=== PATIENT | female | born 1950 | race Caucasian/White ===

== ENCOUNTER 2016-08-07 10:45 | Emergency (ER) | payer OTHER ==
[2016-08-07 11:01] VITALS: RESP 18; TEMP 97
[2016-08-07] MEDS ORDERED: NORMAL SALINE 10 ML SYRINGE FLUSH IVP PRN (11:06)
[2016-08-07] MEDS ORDERED: Sodium Chloride 0.9% 1,000 ML PRIMARY IV ONE (11:06)
--- NOTE | 2016-08-07 11:31 | PDOC ---
Abdomen/Flank HPI - General Chief Complaint: Genitourinary Complaint Stated Complaint: LEFT FLANK PAIN Date Seen by Provider: 08/07/16 Time Seen by Provider: 10:50 Source: POSITIVE: Patient, Spouse Exam Limitations: POSITIVE: No limitations Nurse's Notes Reviewed & Considered: Yes - History of Present Illness Initial Comments: The patient is a 65-year-old female who is evaluated in the emergency department with abdominal pain and left flank pain. She is in the process of moving her home from [place] to [place]. She has done a lot of packing and lifting over the past couple of weeks. Approximately a week ago she had developed some pain in her lower back and left flank region. She was seen in the emergency department somewhere in [place] about 5 days ago. She had x-rays of her lumbar spine that shows some degenerative changes. Her urinalysis at that time was apparently normal. She was given a prescription for 800 mg ibuprofen as well as Tylenol with codeine. She states that she has continued to have pain in her lower back and left flank area. In addition she has developed over the past several days some increased pain in her lower abdomen and this morning she has some pain across her right upper abdomen as well. She does have associated nausea however has not been having any vomiting. She did have 2 episodes of diarrhea this morning. She denies fevers or chills however she does report general malaise and is concerned that she might have some type of infection. She is diabetic and takes 1 tablet of Glucophage daily. Her blood sugar yesterday was 120 and today was 140. She has had previous cholecystectomy in 2006. She has also had a left dermoid cyst removed from her ovary previously. She has had 2 previous C-sections as well. Her past medical history is otherwise unremarkable. She denies any urinary symptoms currently. She does report diminished urination yesterday. She did eat an omelette this morning prior to her increased right upper quadrant abdominal pain and nausea. - Patient Home Medications Home Medications: Home Medications Acetaminophen with Codeine [Tylenol with Codeine #3 Tablet] 1 tab PO PRN PRN Pantoprazole Sodium [Protonix] 40 mg PO DAILY #20 tablet 08/07/16 metFORMIN Tab [Glucophage Tab] 1,000 mg PO BID 08/07/16 oxyCODONE/APAP 5/325 Tab [Percocet 5/325 Tab] 1 tab PO Q6H PRN #15 tab - Patient Allergies Allergies/Adverse Reactions: Allergies Allergy/AdvReac Type Severity Reaction Status Date / Time erythromycin base Allergy HIVES Verified 08/07/16 10:51 Sulfa (Sulfonamide Allergy HIVES Verified 08/07/16 10:51 Antibiotics) Past Medical History - heen HEENT History: Denies History Cardiovascular History: Denies History Respiratory History: Denies History Gastrointestinal History: Denies History Genitourinary History: Denies History Endocrine History: Type 2 Diabetes (oral) Musculoskeletal History: Denies History Neurological History: Denies History Blood Disorders: Denies History Psychiatric History: Denies History Female Reproductive History: Denies History Obstetrical History: Denies History Cancer History: Denies History In Past Year Been Physically Harmed or Verbally Threatened: No History of MDRO: No Tobacco Use: Never Smoker Alcohol Use: Rarely Substance Use Type: None Previous Surgical History: Yes Type / Date of Surgery: BLANE, X2, TUMOR REMOVED FROM OVARY Anesthesia Reactions: No Malignant Hyperthermia: No Family History of Malignant Hyperthermia: No Significant Family History: No pertinent family hx Past Medical History Reviewed: Reviewed - No Changes ROS - Limitations ROS Limitations: No Limitations Constitution: DENIES: Chills, Fever Cardiovascular: REPORTS: Denies Cardiac Symptoms. DENIES: Chest Pain, Heart Palpitations, Edema Respiratory: DENIES: Cough Non Productive, Cough Productive, Hurts To Breathe, Shortness Of Breath Neurological: REPORTS: Denies Neuro Symptoms Gastrointestinal: REPORTS: Abdominal Pain, Nausea, Diarrhea (2 today), Other ( Previous colonoscopy in 2006 and she was told at that time that she had a "pre- polyp", no mention of diverticular disease). DENIES: Vomitting, Black Stools, Bloody Stools, Constipation Musculoskeletal: REPORTS: Back Pain (Low back and left flank pain). DENIES: Calf Pain, Lower Extremity Swelling Genitourinary: DENIES: Dysuria, Hematuria, Difficulty Urinating Eyes: REPORTS: Denies Symptoms ENT: REPORTS: Denies Symptoms Skin: DENIES: Rash Abdominal/Flank Pain PE - General Appearance General Appearance: POSITIVE: Alert, Cooperative, No Acute Distress - HEENT HEENT: POSITIVE: Head Inspection Nml, Eyes Inspection Nml, Ears Inspection Nml, Nose Inspection Nml - Neck Neck: POSITIVE: Normal Inspection - Respiratory Respiratory: POSITIVE: No Respiratory Distress, Breath Sounds Normal - Cardiovascular Cardiovascular: POSITIVE: Regular Rate and Rhythm, Heart Sounds Normal Peripheral Pulses: Dorsalis-pedis (R): 2+, Dorsalis-pedis (L): 2+ - Abdomen Abdomen: Soft: (All Quadrants), Normal Bowel Sounds: (All Quadrants), No Guarding: (All Quadrants), No Rebound: (All Quadrants), No Distention: (All Quadrants) Additional Abdominal Details: She does have some mild tenderness in her lower abdomen as well as right upper and epigastric region, no guarding or rebound tenderness, no palpable mass, no obvious CVA tenderness - Back Back: NEGATIVE: CVA Tenderness (R), CVA Tenderness (L) - Skin Skin: POSITIVE: Intact, No Rash - Extremities Extremity: Normal ROM: (All Extremities), Normal Inspection: (All Extremities) - Neurological Neurological: POSITIVE: Other (No focal neurologic deficits) Abdomen Progress - Results Reviewed by me Xrays/CTs/US Reviewed by me: Yes Discussed with Radiologist: Yes Radiology Findings: CT scan of the abdomen and pelvis reveals inflammatory changes around the stomach and possibly around the pancreas per radiologist. The radiologist also describes a mildly enlarged right ureter and mildly enlarged renal pelvises bilaterally, no visible stone. Lab Results Reviewed: Yes Lab Results:: Laboratory Results 08/07/16 08/07/16 Range/Units 11:25 11:58 WBC 6.23 (4.8-10.8) 10^3/uL RBC 4.56 (4.20-5.40) 10^6/uL Hgb 13.1 (12.0-16.0) g/dL Hct 39.1 (37.0-47.0) % MCV 85.7 (81-99) FL MCH 28.7 (27-31) PG MCHC 33.5 (33-37) g/dL RDW Std Deviation 40.6 (39-50) fL RDW Coeff of [place] 13.1 (11.5-14.5) % Plt Count 237 (140-350) 10*3/uL MPV 8.9 (7.4-12.2) FL Immature Gran % (Auto) 0.2 (0-5) % Neut % (Auto) 57.0 (50-80) % Lymph % (Auto) 27.8 (10-50) % [place] % (Auto) 8.3 (5-15) % Eos % (Auto) 6.1 (0-8) % Baso % (Auto) 0.6 (0-1) % Immature Gran # (Auto) 0.01 10*3/UL Neut # (Auto) 3.55 10*3/UL Lymph # (Auto) 1.73 10*3/uL [place] # (Auto) 0.52 (0.3-0.8) 10*3/UL Eos # (Auto) 0.38 10*3/UL Baso # (Auto) 0.04 10*3/UL WBC Morphology Comment Normal morphology (NORM) Plt Morphology Comment Normal morphology (NORM) RBC Morph Comment Normal morphology (NORM) Sodium 141 (135-145) meq/L Potassium 4.0 (3.8-5.2) meq/L Chloride 105 (98-112) meq/L Carbon Dioxide 26 (23-33) meq/L Anion Gap 10 (5-20) BUN 19 (7-22) mg/dL Creatinine 0.7 (0.50-1.20) mg/dL Estimated GFR > 60 (>60 ml/min/1.73m(2)) BUN/Creatinine Ratio 27.14 H (6-20) Glucose 113 H (78-110) mg/dL Calculated Osmolality 294.0 H (267-292) mOsm/kg Calcium 9.2 (8.7-10.7) mg/dL Total Bilirubin 0.9 (0.3-1.2) mg/dL AST 30 (8-39) IU/L ALT 49 (9-52) IU/L Alkaline Phosphatase 82 (38-126) IU/L C-Reactive Protein 0.7 (0.0-0.9) mg/dL Total Protein 7.3 (6.1-8.0) g/dL Albumin 4.1 (3.5-4.8) g/dL Globulin 3.2 (2.50-4.10) g/dL Albumin/Globulin Ratio 1.20 L (1.3-2.0) mg/g Amylase 51 (30-110) U/L Lipase 99 (23-300) IU/L Ur Collection Type Clean catch urine Urine Color Yellow Urine Clarity Clear (CLEAR) Urine pH 7.0 (5.0-8.5) Ur Specific [place] 1.015 (1.005-1.030) Urine Protein Negative (NEG) mg/dl Urine Glucose (UA) Negative (NEG) mg/dL Urine Ketones Negative (NEG) Urine Occult Blood Negative (NEG) Urine Nitrate Negative (NEG) Urine Bilirubin Negative (NEG) Urine Urobilinogen 0.2 (0.2) EU/dL Ur Leukocyte Esterase Negative (NEG) Ur Culture Indicated? Culture not set - Patient's Progress MDM / ED Course: An IV was established and she did receive a 1 L bolus of normal saline. She was nauseated and was having a fair amount of pain on arrival. She states that she is reluctant to take any medications through the IV as she is very sensitive to medications and they generally make her sick. She was offered antibiotics as well as pain medications however she declined initially. Her lab work is all essentially unremarkable and her urinalysis is normal. CT scan of her abdomen and pelvis revealed inflammatory change around the stomach as well as possibly around the pancreas per radiologist. Her pancreas enzymes however completely normal and I think that the inflammation more likely represents gastritis and not pancreatitis. The radiologist also mentioned a slightly enlarged right ureter as well as enlarged renal pelvises bilaterally with no evidence of obvious kidney stone. This was thought to be possibly indicative of a recently passed stone. These findings were discussed with the patient. I think her primary issues gastritis. She was started on Protonix 40 mg daily and was given Percocet as needed for pain. She was instructed about the other findings on CT. She is advised return to the emergency room if she develops increased pain, fever, vomiting or dehydration, any worsening or change in symptoms. She is advised follow-up with her primary care provider on Monday when she reaches her home in [place]. - Consult Counseled: POSITIVE: Patient, Family, RE: Lab Results, RE: Radiology Results, RE : DX, RE: Need for F/U Patient Care Time - Estimated PCT Patient Care Time (In Minutes): 40 Vital Signs - VS Reviewed Vital Signs Reviewed: Yes Discharge Clinical Impression: Abdominal pain, Gastritis Discharge Disposition: Discharged to Home Condition: Fair Prescriptions / Orders: oxyCODONE/APAP 5/325 Tab [Percocet 5/325 Tab] 1 tab PO Q6H PRN #15 tab PRN Reason: Pain Pantoprazole Sodium [Protonix] 40 mg PO DAILY #20 tablet Patient Instructions Given at Discharge: Gastritis (ED), Acute Abdominal Pain ( ED) Additional Instructions: The CAT scan of your abdomen and pelvis does reveal inflammation around the lower part of your stomach and first part of small intestine. This is most consistent with gastritis or ulcer. The radiologist thought there might be some inflammation around the pancreas as well however your pancreas enzymes were normal and your blood work and I think this was more related to the gastritis. The only other finding on the CAT scan was some prominent ureter on the right side and renal pelvises. There was no evidence of infection in the urine or blood in the urine. The radiologist stated this could represent findings consistent with a recently passed kidney stone. There was no visible kidney stones on the CAT scan. Your blood work did not reveal any sign of infection or elevated liver enzymes or any other abnormalities. Recommend treatment of the gastritis with Protonix 40 mg daily for at least the next 2 weeks. Recommend avoiding aspirin or ibuprofen products, caffeine and alcohol. You have also been prescribed Percocet 5/325 which he can take one every 6 hours as needed for pain. I commend returning to the emergency room if increased pain, vomiting or dehydration, fever, any worsening or change in symptoms. Keep your follow-up appointment with your primary care provider in [place] on Monday. Follow Up With: NONE,NONE [Primary Care Provider] -
[2016-08-07 11:39] LABS: BASOPHILS # (AUTO) 0.04 10*3/UL; BASOPHILS % (AUTO) 0.6 % (0-1); EOSINOPHILS # (AUTO) 0.38 10*3/UL; EOSINOPHILS % (AUTO) 6.1 % (0-8); HEMATOCRIT 39.1 % (37.0-47.0); HEMOGLOBIN 13.1 g/dL (12.0-16.0); LYMPHOCYTES # (AUTO) 1.73 10*3/uL; MEAN CORPUSCULAR HEMOGLOBIN 28.7 PG (27-31); MEAN CORPUSCULAR HGB CONC 33.5 g/dL (33-37); MEAN CORPUSCULAR VOLUME 85.7 FL (81-99); MEAN PLATELET VOLUME 8.9 FL (7.4-12.2); MONOCYTES # (AUTO) 0.52 10*3/UL (0.3-0.8); MONOCYTES % (AUTO) 8.3 % (5-15); NEUTROPHILS # (AUTO) 3.55 10*3/UL; RED BLOOD COUNT 4.56 10^6/uL (4.20-5.40)
[2016-08-07 11:40] LABS: PLATELET MORPHOLOGY COMMENT NORMAL MORPHOLOGY (NORM); RBC MORPHOLOGY COMMENT NORMAL MORPHOLOGY (NORM); WBC MORPHOLOGY COMMENT NORMAL MORPHOLOGY (NORM)
[2016-08-07 11:50] LABS: BLOOD UREA NITROGEN 19 mg/dL (7-22); BUN/CREATININE RATIO 27.14 (6-20); C-REACTIVE PROTEIN 0.7 mg/dL (0.0-0.9); CALCIUM 9.2 mg/dL (8.7-10.7); EST GLOMERULAR FILTRATION > 60 (>60 ml/min/1.73m(2)); LIPASE 99 IU/L (23-300); SERUM ALBUMIN 4.1 g/dL (3.5-4.8)
[2016-08-07 12:08] LABS: BILIRUBIN,URINE NEGATIVE (NEG); COLOR,URINE YELLOW; GLUCOSE, URINE (UA) NEGATIVE (NEG); NITRATE,URINE NEGATIVE (NEG); OCCULT BLOOD,URINE NEGATIVE (NEG); PROTEIN,URINE NEGATIVE (NEG); UROBILINOGEN,URINE 0.2 EU/dL (0.2)
[2016-08-07 12:09] LABS: CLARITY,URINE CLEAR (CLEAR)
[2016-08-07 12:10] LABS: URINE SAMPLE TYPE CLEAN CATCH URINE
[2016-08-07] MEDS ORDERED: oxyCODONE-ACETAMINOPHEN 5-325 TAB PO ONE (13:52)
[2016-08-07] MEDS ORDERED: PANTOPRAZOLE 40 MG TABLET PO ONE (13:53)
== END 2016-08-07 14:30 | disposition home or self-care (01) ==
LOC: ER 10:45
DX: K29.00 Acute gastritis without bleeding (principal); M54.5 Low back pain; R11.2 Nausea with vomiting, unspecified; E11.9 Type 2 diabetes mellitus without complications; R10.11 Right upper quadrant pain
CPT/HCPCS: 74176; 80053; 81003; 82150; 83690; 85025; 86140; 96360; 96361; 99282; 99283; J7030